=== PATIENT | female | born 1985 | race Caucasian/White ===

== ENCOUNTER → 2017-02-14 | Outpatient (CLI) | payer OTHER ==
[~2017-02-14] MED LIST: ALPR-475 PO; MULT-658 PO; [UNRECOGNIZED DRUG - OTHER] PO
== END | disposition home or self-care (01) ==
LOC: STAR 09:56
PROVIDERS: ATTEND Obstetrics & Gynecology
DX: Z02.9 Encounter for administrative examinations, unspecified (principal)

== ENCOUNTER 2017-02-25 10:13 | Day surgery (SDC) | payer OTHER ==
[~2017-02-25] VITALS: Ht 165.1 cm; Wt 65.0 kg
[2017-02-25 10:42] VITALS: BP 122/83
[2017-02-25] MEDS ORDERED: LACTATED RINGERS 1,000 ML IV SCH (10:43)
[2017-02-25 10:57] LABS: HCG UR OBC PASS
[2017-02-25] MEDS ORDERED: BUPIVACAINE/PF 0.25% ONE ×2 (11:50→12:31)
[2017-02-25] MEDS ORDERED: BUPIVACAINE/PF-EPI 0.25% 1:200K ONE (12:30)
[2017-02-25] MEDS ORDERED: ROCURONIUM 10 MG/ML ONE (13:43)
[2017-02-25] MEDS ORDERED: DEXAMETHASONE 4 MG/ML, 5ML ONE (13:43)
[2017-02-25] MEDS ORDERED: KETOROLAC 30 MG/1 ML ONE (13:43)
[2017-02-25] MEDS ORDERED: METOCLOPRAMIDE 5 MG/ML, 2ML ONE (13:43)
[2017-02-25] MEDS ORDERED: ONDANSETRON 2MG/ML, 2ML ONE (13:43)
[2017-02-25] MEDS ORDERED: PROPOFOL 10 MG/ML, 20ML ONE (13:43)
[2017-02-25] MEDS ORDERED: SILVER NITRATE STICK TP ONE (14:36)
[2017-02-25] MEDS ORDERED: OXYcodone 5 MG/5 ML ORAL.SOL UDC ONE (15:18)
[2017-02-25] MEDS ORDERED: FENTANYL PF 100 MCG/2ML ONE (15:18)
[2017-02-25] MEDS ORDERED: FENTANYL PF 100 MCG/2ML IV PRN (15:30)
[2017-02-25] MEDS ORDERED: HALOPERIDOL 5 MG/ML IV PRN (15:30)
[2017-02-25] MEDS ORDERED: HYDROmorphone 1 MG/ML, 1ML IV PRN (15:30)
[2017-02-25] MEDS ORDERED: PROMETHAZINE 25 MG/ML, 1ML IV PRN (15:30)
[2017-02-25] MEDS ORDERED: OXYcodone 5 MG/5 ML ORAL.SOL UDC PO PRN (15:30)
[2017-02-25] MEDS ORDERED: ONDANSETRON 2MG/ML, 2ML IVPush PRN (15:30)
== END 2017-02-25 17:20 | disposition home or self-care (01) ==
LOC: OUT 10:13
PROVIDERS: ATTEND Obstetrics & Gynecology
DX: Z30.2 Encounter for sterilization (principal); N83.8 Other noninflammatory disorders of ovary, fallopian tube and broad ligament; Z30.432 Encounter for removal of intrauterine contraceptive device; F32.9 Major depressive disorder, single episode, unspecified; J30.2 Other seasonal allergic rhinitis; Z72.89 Other problems related to lifestyle; Z90.49 Acquired absence of other specified parts of digestive tract
CPT/HCPCS: 58301; 58661; 81025; 88302; J1100; J1885; J2405; J2704; J2765; J3010; J3490; J7120

== ENCOUNTER → 2017-08-15 | Outpatient (CLI) | payer OTHER ==
[2017-08-15 11:32] LABS: HEMATOCRIT 43.1 % (34.6-47.8); HEMOGLOBIN 14.7 g/dL (11.7-16.4); WHITE BLOOD COUNT 5.8 x10^3/uL (3.4-10)
[2017-08-15 11:46] LABS: ASPARTATE AMINO TRANSFERASE 15 U/L (15-37); BLOOD UREA NITROGEN 8 mg/dL (7-18); C-REACTIVE PROTEIN, QUANT 0.02 mg/dL (0.02-0.49)
== END | disposition home or self-care (01) ==
LOC: CFH 10:06
PROVIDERS: ATTEND Family Medicine
DX: R10.9 Unspecified abdominal pain (principal); E04.9 Nontoxic goiter, unspecified; Z90.49 Acquired absence of other specified parts of digestive tract
CPT/HCPCS: 36415; 76536; 76700; 80053; 81001; 82150; 83036; 83516; 83690; 84439; 84443; 84480; 85025; 85651; 86038; 86140; 86160; 86225; 86235; 86255; 86256; 86376; 86431; 86677

== ENCOUNTER → 2017-10-12 | Outpatient (CLI) | payer OTHER | END | disposition home or self-care (01) | LOC: LAB 10:27 | PROVIDERS: ATTEND Nurse Practitioner | DX: M35.9 Systemic involvement of connective tissue, unspecified (principal); R76.0 Raised antibody titer | CPT/HCPCS: 36415; 81003; 85730 ==

== ENCOUNTER 2017-12-30 12:12 | Emergency (ER) | payer OTHER ==
[~2017-12-30] VITALS: Ht 165.1 cm; Wt 66.8 kg
[2017-12-30] MEDS ORDERED: PROCHLORPERAZINE 5 MG/ML, 2ML IVPush ONE (13:00)
[2017-12-30] MEDS ORDERED: SODIUM CHLORIDE FLUSH 10ML SYR IVF ONE (13:00)
[2017-12-30] MEDS ORDERED: SODIUM CHLORIDE 0.9% 1,000ML IVBOLUS ONE (13:00)
[2017-12-30] MEDS ORDERED: DIPHENHYDRAMINE 50 MG/ML, 1ML IVPush ONE (13:00)
[2017-12-30] MEDS ORDERED: PROCHLORPERAZINE 5 MG/ML, 2ML ONE (13:25)
[2017-12-30] MEDS ORDERED: DIPHENHYDRAMINE 50 MG/ML, 1ML ONE (13:25)
[2017-12-30] MEDS ORDERED: KETOROLAC 30 MG/1 ML IVPush ONE (13:30)
[2017-12-30 13:31] LABS: BASOPHILS # (AUTO) 0.01 x10^3/uL (0-0.1); BASOPHILS % (AUTO) 0 % (0-1); EOSINOPHILS # (AUTO) 0.01 x10^3/uL (0-0.4); EOSINOPHILS % (AUTO) 0 % (1-7); LYMPHOCYTES % (AUTO) 26 % (22-44); MD NO; MEAN CORPUSCULAR HEMOGLOBIN 32.6 pg (27.0-34.8); MEAN CORPUSCULAR HGB CONC 34.5 g/dL (32.4-35.8); MEAN CORPUSCULAR VOLUME 94.3 fL (80-100); MEAN PLATELET VOLUME 8.8 fL (7.4-10.4); MONOCYTES # (AUTO) 0.64 x10^3/uL (0.2-0.8); MONOCYTES % (AUTO) 13 % (2-9); NEUTROPHILS # (AUTO) 2.97 x10^3/uL (1.8-6.8); NEUTROPHILS % (AUTO) 60 % (42-75); PLATELET COUNT 237 x10^3/uL (130-400); RED BLOOD COUNT 5.05 x10^6/uL (3.82-5.3); RED CELL DISTRIBUTION WIDTH 12.4 % (9.6-15.2)
[2017-12-30] MEDS ORDERED: KETOROLAC 30 MG/1 ML ONE (13:31)
[2017-12-30 13:39] LABS: ALBUMIN 4.6 g/dL (3.4-5.0); ANION GAP 6 mmol/L (5-15); CALCIUM 9.3 mg/dL (8.5-10.1); CHLORIDE 107 mmol/L (98-107)
[2017-12-30 14:38] VITALS: BP 124/52
== END 2017-12-30 14:58 | disposition home or self-care (01) ==
LOC: ED 14:40
DX: G43.909 Migraine, unspecified, not intractable, without status migrainosus (principal); M06.9 Rheumatoid arthritis, unspecified; M32.9 Systemic lupus erythematosus, unspecified; Z90.49 Acquired absence of other specified parts of digestive tract
CPT/HCPCS: 36415; 80048; 82040; 84703; 85025; 96361; 96374; 96375; 99284; J0780; J1200; J1885; J7030

== ENCOUNTER → 2018-02-16 | Outpatient (CLI) | payer OTHER ==
[2018-02-16 07:56] LABS: HCT (SEDRATE) 45.8 % (34.6-47.8)
[2018-02-16 08:04] LABS: BASOPHILS # (AUTO) 0.04 x10^3/uL (0-0.1); BASOPHILS % (AUTO) 1 % (0-1); EOSINOPHILS # (AUTO) 0.01 x10^3/uL (0-0.4); EOSINOPHILS % (AUTO) 0 % (1-7); LYMPHOCYTES # (AUTO) 1.16 x10^3/uL (1-3.4); LYMPHOCYTES % (AUTO) 16 % (22-44); MD NO; MEAN CORPUSCULAR HEMOGLOBIN 31.9 pg (27.0-34.8); MEAN CORPUSCULAR HGB CONC 33.9 g/dL (32.4-35.8); MEAN PLATELET VOLUME 8.6 fL (7.4-10.4); MONOCYTES # (AUTO) 0.62 x10^3/uL (0.2-0.8); MONOCYTES % (AUTO) 9 % (2-9); NEUTROPHILS % (AUTO) 75 % (42-75); PLATELET COUNT 225 x10^3/uL (130-400); RED BLOOD COUNT 4.87 x10^6/uL (3.82-5.3); RED CELL DISTRIBUTION WIDTH 12.5 % (9.6-15.2)
[2018-02-16 08:08] LABS: ALANINE AMINOTRANSFERASE 26 U/L (12-78); ALBUMIN 4.2 g/dL (3.4-5.0); ANION GAP 8 mmol/L (5-15); CALCIUM 8.8 mg/dL (8.5-10.1); CHLORIDE 105 mmol/L (98-107); CREATININE 0.87 mg/dL (0.55-1.02)
[2018-02-16 08:18] LABS: ALKALINE PHOSPHATASE 52 U/L (45-117); BILIRUBIN,TOTAL 0.8 mg/dL (0.2-1.0); CREATININE,URINE RANDOM 81.4 mg/dL; MICROSCOPIC AUTO; TOTAL PROTEIN 8.2 g/dL (6.4-8.2)
[2018-02-16 08:19] LABS: CULTURE INDICATED? NO
== END | disposition home or self-care (01) ==
LOC: LAB 07:27
PROVIDERS: ATTEND Specialist
DX: M32.19 Other organ or system involvement in systemic lupus erythematosus (principal); R53.83 Other fatigue; Z79.899 Other long term (current) drug therapy
CPT/HCPCS: 36415; 80053; 81001; 82570; 84156; 84443; 85025; 85613; 85651; 85670; 85705; 85732; 86140; 86146; 86147; 86160; 86225

== ENCOUNTER 2018-08-28 08:52 | Emergency (ER) | payer OTHER ==
[~2018-08-28] VITALS: Ht 165.1 cm; Wt 70.9 kg
[2018-08-28 08:57] VITALS: BP 142/92
[2018-08-28] MEDS ORDERED: HYDROcodone/APAP 5/325 TABLET PO ONE (10:00)
[2018-08-28] MEDS ORDERED: HYDROcodone/APAP 5/325 TABLET ONE (10:28)
[2018-08-28] MEDS ORDERED: KETOROLAC 30 MG/1 ML ONE (11:27)
[2018-08-28] MEDS ORDERED: KETOROLAC 30 MG/1 ML IM ONE (11:30)
== END 2018-08-28 11:51 | disposition home or self-care (01) ==
LOC: ED 11:30
DX: S00.83XA Contusion of other part of head, initial encounter (principal); M06.9 Rheumatoid arthritis, unspecified; V89.2XXA Person injured in unspecified motor-vehicle accident, traffic, initial encounter; Y93.89 Activity, other specified; Y99.8 Other external cause status; Y92.410 Unspecified street and highway as the place of occurrence of the external cause
CPT/HCPCS: 70450; 71045; 72125; 72170; 96372; 99284; J1885

== ENCOUNTER 2020-03-18 08:12 | Emergency (ER) | payer BC, OTHER ==
[~2020-03-18] VITALS: Ht 165.1 cm; Wt 80.8 kg
[~2020-03-18 08:12] MED LIST changes: -ALPR-475 PO; +ALPR0.5T7 PO
[2020-03-18 08:21] VITALS: BP 158/94
--- NOTE | 2020-03-18 08:32 | NUR ---
FIRST CONTACT WITH PT. PT C/O L SIDED RIB PAIN "SOMEONE PICKED ME UP AND SQUEEZED ME REALLY HARD AND THEN WE WENT CAMPING AND I WAS LIFTING AND KAYAKING THEN IT STARTED HURTING REALLY BAD, I CAN'T SLEEP IT HURTS SO BAD" PT'S AOX4. RESPS EVEN AND UNLABORED. DENIES ANY OTHER SX.
--- NOTE | 2020-03-18 09:13 | NUR ---
PT IN XRAY AT THIS TIME.
--- NOTE | 2020-03-18 09:50 | NUR ---
INCENTIVE SPIROMETER GIVEN AND INSTRUCTED. PT CRYING IN ROOM AND STATES"SOMETHING WRONG. IT HURTS SO BAD."
--- NOTE | 2020-03-18 10:05 | NUR ---
ATTEMPTED DC AND PT STATES"I'M HERE FOR CT NOT XRAY. I WORK AT [employer] AND XRAY IS FREE THERE. I NEED CT THAT'S WHY I'M HERE." JESSIKA NOTIFIED.
--- NOTE | 2020-03-18 10:13 | NUR ---
PAT AT BEDSIDE TO DISCUSS POC AGAIN. EDMD TO SEE PT.
--- NOTE | 2020-03-18 10:55 | NUR ---
pt sitting on [facility]. pt's aox4. resps even and unlabored. awaiting edmd.
--- NOTE | 2020-03-18 11:25 | NUR ---
Patient given discharge instructions and they have confirmed that they understand the instructions. Patient ambulatory with steady gait.
== END 2020-03-18 11:26 | disposition home or self-care (01) ==
LOC: ED 09:57
DX: S20.211A Contusion of right front wall of thorax, initial encounter (principal); X58.XXXA Exposure to other specified factors, initial encounter; Y93.89 Activity, other specified; Y92.098 Other place in other non-institutional residence as the place of occurrence of the external cause; Y99.8 Other external cause status
CPT/HCPCS: 71046; 99283